=== PATIENT | male | born 1965 | race Two or more races ===

== ENCOUNTER 2019-12-28 20:05 | Emergency (ER) | payer OTHER, BC ==
[~2019-12-28] VITALS: Ht 177.8 cm; Wt 84.8 kg
--- NOTE | 2019-12-28 21:04 | NUR ---
SUPERINTENDENT JOB: PT WALKED BACK FROM LOBBY TO ROOM AT THIS TIME. STEADY UPON AMBULATION.
[2019-12-28 21:45] VITALS: BP 124/72
--- NOTE | 2019-12-28 21:45 | NUR ---
pt educated on used of IS. pt demonstrated us of IS. pt to be discharged.
== END 2019-12-28 22:14 | disposition home or self-care (01) ==
LOC: ED 21:30
DX: S20.212A Contusion of left front wall of thorax, initial encounter (principal); X58.XXXA Exposure to other specified factors, initial encounter; Y93.89 Activity, other specified; Y92.69 Other specified industrial and construction area as the place of occurrence of the external cause; Y99.8 Other external cause status
CPT/HCPCS: 99283